=== PATIENT | female | born 1960 ===

== ENCOUNTER 2017-12-15 22:53 | Emergency (ER) | payer BC ==
[2017-12-15 23:19] VITALS: O2SAT 100
--- NOTE | 2017-12-15 23:57 | ED PDOC ---
HPI: Skin/Bite Injury Time Seen by Provider: 12/15/17 23:23 Chief Complaint (Nursing): Abnormal Skin Integrity Chief Complaint (Provider): Abnormal Skin Integrity History Per: Patient History/Exam Limitations: no limitations Onset/Duration Of Symptoms: Days Current Symptoms Are (Timing): Still Present Quality Of Symptoms: Itching Additional Complaint(s): Halle Mendoza is a 57 year old female with a past medical history of Deep Vein Thrombosis and hypertension who is presenting to the ED for evaluation of rash onset 1 week ago. Patient states that she has been taking amoxicillin for strep throat and despite finishing her course, she has diffuse red, itchy, bumpy rash to trunk and extremities, sparing palms and soles. She reports that she has not taken any medications for the rash and states she saw her PMD yesterday for the persistent sore throat who prescribed her different antibiotics and referred her to a rn school for the rash. Patient decided to come to the ED as per advice of her mother. PMD: Sailaja Kelsey Past Medical History Reviewed: Historical Data, Nursing Documentation, Vital Signs Vital Signs: Last Vital Signs Temp 98.2 F 12/15/17 23:59 Pulse 79 12/15/17 23:59 Resp 17 12/15/17 23:59 BP 131/66 12/15/17 23:59 Pulse Ox 100 12/16/17 17:06 - Medical History PMH: Deep Vein Thrombosis, HTN, Pulmonary Embolism, TIA - Surgical History Surgical History: No Surg Hx - Family History Family History: States: Hypertension Other Family History: venous thrombosis - Social History Current smoker - smoking cessation education provided: Yes Alcohol: None Drugs: Denies - Home Medications Home Medications: Ambulatory Orders Medication Instructions Recorded DiphenhydrAMINE [Benadryl] 50 mg PO Q6 PRN #30 cap 12/15/17 Petrolatum,White [Aquaphor] 1 appl TP PRN PRN #1 oint...g. 12/15/17 Prednisone 50 mg PO DAILY #4 tablet 12/15/17 - Allergies Allergies/Adverse Reactions: Allergies Allergy/AdvReac Type Severity Reaction Status Date / Time No Known Allergies Allergy Verified 12/15/17 23:14 Review of Systems ROS Statement: Except As Marked, All Systems Reviewed And Found Negative ENT: Positive for: Ear Pain, Throat Pain Respiratory: Negative for: Cough Skin: Positive for: Rash (itchy, red bumpy) Physical Exam - Reviewed Nursing Documentation Reviewed: Yes Vital Signs Reviewed: Yes - Physical Exam Appears: Positive for: Non-toxic, No Acute Distress Skin: Positive for: Warm, Dry, Rash (papable raised erythematous dry rash to extremities, back, chest, buttocks: some areas very dry and white in color ) Eye Exam: Positive for: EOMI, PERRL ENT: Positive for: Pharynx Is (erythematous) Neck: Positive for: Painless ROM, Supple Respiratory: Positive for: Normal Breath Sounds. Negative for: Wheezing, Respiratory Distress Extremity: Positive for: Pedal Edema. Negative for: Deformity Lymphatic: Positive for: Adenopathy (bilateral submandibular adenopathy) Neurologic/Psych: Positive for: Alert. Negative for: Motor/Sensory Deficits - ECG O2 Sat by Pulse Oximetry: 100 (RA) Pulse Ox Interpretation: Normal Medical Decision Making Medical Decision Making: Time: 23:40 Impression: Rash Plan: --Benadryl 25 mg PO --SOLU-Medrol 125 mg IM Scribe Attestation: Documented by, Laurence Gaviria acting as a scribe for Rosibel Medley MD. Provider Scribe Attestation: All medical record entries made by the Scribe were at my direction and personally dictated by me. I have reviewed the chart and agree that the record accurately reflects my personal performance of the history, physical exam, medical decision making, and the department course for this patient. I have also personally directed, reviewed, and agree with the discharge instructions and disposition. Disposition - Clinical Impression Clinical Impression: Rash Counseled Patient/Family Regarding: Diagnosis, Need For Followup, Rx Given - Disposition Disposition Time: 00:15 Condition: STABLE Additional Instructions: FILL AND START TAKING YOUR PRESCRIBED ANTIBIOTIC SOON POSSIBLE FOLLOW UP WITH SHOE PACKER SOON POSSIBLE. Prescriptions: DiphenhydrAMINE [Benadryl] 50 mg PO Q6 PRN #30 cap PRN Reason: Itching / Pruritus Petrolatum,White [Aquaphor] 1 appl TP PRN PRN #1 oint...g. PRN Reason: Dry Skin Prednisone 50 mg PO DAILY #4 tablet Instructions: Skin Rash (DC) Forms: [employer] (Lithuanian)
[2017-12-16 00:19] VITALS: BP 131/66; PULSE 79; RESP 17; TEMP 98.2
== END 2017-12-16 00:12 | disposition home or self-care (01) ==
LOC: H.ER 22:53
DX: R21 Rash and other nonspecific skin eruption (principal); I10 Essential (primary) hypertension; Z86.711 Personal history of pulmonary embolism; Z86.718 Personal history of other venous thrombosis and embolism; Z86.73 Personal history of transient ischemic attack (TIA), and cerebral infarction without residual deficits
CPT/HCPCS: 96372; 99282; J2930